=== PATIENT | female | born 1990 | race Caucasian/White ===

== ENCOUNTER 2017-04-10 15:43 | Emergency (ER) | payer OTHER ==
[~2017-04-10] VITALS: Ht 160 cm; Wt 68.0 kg
[~2017-04-10 15:43] MED LIST: PREN1TAB79 PO
[2017-04-10 15:58] VITALS: Ht 160 cm; Wt 68.0 kg
[2017-04-10] MEDS ORDERED: BEN25 PO (16:31)
--- NOTE | 2017-04-10 16:39 | ERA ---
ER Documentation Chief Complaint Date/Time DATE: 04/10/17 TIME: 16:34 Chief Complaint rash to chest and back x 3 days HPI This is a 26-year-old female presenting with a chief complaint of rash 3 days. Patient describes rash as pruritic and on the chest and back. Patient also describes a "about 2 inch patch of what I thought was skin on my upper right chest about a week ago" that appeared before the current rash broke out. Patient was seen at an urgent care and diagnosed with a heat rash. Patient has not taken any medications to relieve the discomfort. Patient denies any new environmental factors or possible causes of allergies. Patient denies allergies or asthma. Patient's vaccination status is up-to-date. Patient has no other complaints and describes no other associated manifestations at this time. ROS All systems reviewed and are negative except as per history of present illness. Medications Home Meds Active Scripts Diphenhydramine Hcl* (Benadryl*) 25 Mg Cap, 25 MG PO Q6, #30 CAP Prov:NALDO GUADALUPE PA-C 04/10/17 Reported Medications Vit W-Ca,Fe,FA(<1 mg) ( Vitamins) 1 Each Tablet, 1 EACH PO, TAB 01/17/16 Allergies Allergies: Coded Allergies: No Known Allergy (Verified , 01/17/16) PMhx/Soc Hx Neurological Disorder: No Hx Respiratory Disorders: No Hx Cardiac Disorders: No Hx Psychiatric Problems: No Hx Alcohol Use: No Hx Substance Use: No Hx Tobacco Use: No Physical Exam Vitals Vital Signs Date Time Temp Pulse Resp B/P Pulse Ox O2 Delivery O2 Flow Rate FiO2 04/10/17 15:58 98.3 76 16 138/83 99 Physical Exam Const: Overweight 26-year-old female Head: Atraumatic Eyes: Normal Conjunctiva ENT: Normal External Ears, Nose and Mouth. Neck: Full range of motion..~ No meningismus. Resp: Clear to auscultation bilaterally Cardio: Regular rate and rhythm, no murmurs Abd: Soft, non tender, non distended. Normal bowel sounds Skin: Symmetrical bilateral erythematous slightly raised rash of coalescent papules on the upper chest and lower back. The rash follows a dermatomal pattern bilaterally. Back: No midline or flank tenderness Ext: No cyanosis, or edema Neur: Awake and alert Psych: Normal Mood and Affect Procedures/MDM 26-year-old female being evaluated for rash. Appearance of patient's rash is most consistent with pityriasis rosea. At this time I have very little suspicion for allergic reaction, endangerment of the airway, bacterial cause for other infectious pathologies. Treatment will thus be to control the itching and have talked to the patient about her condition and how it is self- limited and should resolve in about 2 weeks. Patient understands her current condition and is verbally acknowledged she understands the treatment plan and the importance of returning to the emergency department or seek medical care if signs and symptoms change or worsen or persist. Departure Diagnosis: Primary Impression: Pityriasis Condition: Stable Patient Instructions: Pityriasis Rosea Additional Instructions: Follow up with your PCP within the next 1-3 days for a more thorough evaluation and a possible referral to a specialist. Return the the emergency department immediately if symptoms worsen or change. If you have any questions regarding medications, ask your pharmacist or us before you leave. If any adverse reactions occur while taking your medications, discontinue the treatment and return to the emergency department immediately. Take your medications as directed, and complete the entire course of treatment. NALDO GUADALUPE PA-C April 10, 2017 16:39
== END 2017-04-10 16:34 | disposition home or self-care (01) ==
LOC: E/R 15:43
DX: L42 Pityriasis rosea (principal)
CPT/HCPCS: 99283

== ENCOUNTER 2017-04-17 15:02 | Emergency (ER) | payer OTHER ==
[~2017-04-17] VITALS: Ht 157.5 cm; Wt 61.0 kg
[~2017-04-17 15:02] MED LIST changes: +BEN25 PO
[2017-04-17 15:14] VITALS: Ht 157.5 cm; Wt 61.0 kg
[2017-04-17] MEDS ORDERED: PRED20TA PO (15:35)
[2017-04-17] MEDS ORDERED: HYDR-842 PO (15:36)
--- NOTE | 2017-04-17 23:13 | ERD ---
ER Documentation Chief Complaint Date/Time DATE: 04/17/17 TIME: 23:10 Chief Complaint GENERALIZED RASH X 2 WEEKS HPI This patient is a 26-year-old female with no significant medical history presenting to the emergency department with generalized rash on her upper extremities, posterior neck, anterior chest, and lower back which is been ongoing intermittently for the past 2 weeks. Patient states she just started a new weight loss program and this rash always appears after she receives her B12 injections. Her last injection was today and then she noticed the rash appear afterwards. She reports pruritus. She denies any shortness of breath, oropharyngeal edema, fevers, chills, or other symptoms. ROS All systems reviewed and are negative except as per history of present illness. Medications Home Meds Active Scripts Hydroxyzine Hcl* (Atarax*) 25 Mg Tab, 25 MG PO Q6H Y for ITCHING, #20 TAB Prov:LIZBETH CEDENO PA-C 04/17/17 Prednisone* (Prednisone*) 20 Mg Tab, 40 MG PO DAILY for 5 Days, #10 TAB Prov:LIZBETH CEDENO PA-C 04/17/17 Diphenhydramine Hcl* (Benadryl*) 25 Mg Cap, 25 MG PO Q6, #30 CAP Prov:NALDO GUADALUPE PA-C 04/10/17 Reported Medications Vit W-Ca,Fe,FA(<1 mg) ( Vitamins) 1 Each Tablet, 1 EACH PO, TAB 01/17/16 Allergies Allergies: Coded Allergies: No Known Allergy (Verified , 01/17/16) PMhx/Soc Hx Neurological Disorder: No Hx Respiratory Disorders: No Hx Cardiac Disorders: No Hx Psychiatric Problems: No Hx Alcohol Use: No Hx Substance Use: No Hx Tobacco Use: No FmHx Noncontributory for chief complaint Physical Exam Vitals Vital Signs Date Time Temp Pulse Resp B/P Pulse Ox O2 Delivery O2 Flow Rate FiO2 04/17/17 15:14 98.1 67 18 134/77 98 Physical Exam Const: The patient is resting comfortably in no acute distress. Head: Atraumatic Eyes: Normal Conjunctiva ENT: Normal External Ears, Nose and Mouth. Neck: Full range of motion..~ No meningismus. Resp: Clear to auscultation bilaterally Cardio: Regular rate and rhythm, no murmurs Abd: Soft, non tender, non distended. Normal bowel sounds Skin: Diffuse maculopapular rash noted to the anterior chest, posterior neck, torso, and bilateral upper extremities. Back: No midline or flank tenderness Ext: No cyanosis, or edema Neur: Awake and alert Psych: Normal Mood and Affect Procedures/MDM 26-year-old female presents secondary to complaints of diffuse rash on her body after receiving B12 injections. On physical examination the patient does have a diffuse maculopapular rash to bilateral upper extremities, anterior chest, torso, and the back. History and clinical examination is consistent with a rash with the most likely allergic etiology. The patient is stable for outpatient management with a prescription for prednisone and Atarax. I do not feel the patient requires treatment in the department as she has no oropharyngeal edema on exam, no shortness of breath, or other signs of anaphylaxis. The patient agrees with the discharge plan of diagnosis. She was advised to discontinue the B12 injections. The patient is to have close follow- up with the primary care physician. Strict ER return precautions were discussed. Departure Diagnosis: Primary Impression: Rash and other nonspecific skin eruption Condition: Fair Patient Instructions: Self-Care for Skin Rashes Referrals: PHYLLIS CAMARILLO MD (PCP) Additional Instructions: Follow up with your PCP within the next 1-3 days for a repeat evaluation and a possible referral to a specialist, if required. Return the the emergency department immediately if symptoms worsen or change. If you have any questions regarding medications, ask your pharmacist or us before you leave. If any adverse reactions, occur while taking your medications, discontinue the treatment and return to the emergency department immediately. If any new or worsening symptoms, uncontrolled fevers, or other unexplained symptoms occur, return to the emergency department immediately. Take your medications as directed, and complete the entire course of treatment. LIZBETH CEDENO PA-C April 17, 2017 23:13
== END 2017-04-17 16:06 | disposition home or self-care (01) ==
LOC: FTE 15:02 → E/R 16:06
DX: R21 Rash and other nonspecific skin eruption (principal)
CPT/HCPCS: 99284